=== PATIENT | female | born 1985 | race Asian ===

== ENCOUNTER 2016-10-03 08:00 | Inpatient (IN) ==
[2016-10-04] MEDS ORDERED: Famotidine 20 MG/2 ML VIAL IVP PRN (08:22)
[2016-10-04] MEDS ORDERED: miSOPROStol 25 MCG TABLET PO PRN (08:22)
[2016-10-04] MEDS ORDERED: Metoclopramide 10 MG/2 ML VIAL IVP PRN (08:22)
[2016-10-04] MEDS ORDERED: *HR* Nalbuphine 20 MG/ML AMPUL IVP PRN (08:25)
[2016-10-04] MEDS ORDERED: Ringers Solution, Lactated 1,000 ML IVC SCH (08:30)
[2016-10-04 09:07] LABS: Basophils % 0.1 %; Eosinophils # 0.1 K/mcL (0.0-0.6); Eosinophils % 1.5 %; Hematocrit 33.3 % (35.3-44.9); Hemoglobin 10.8 g/dL (11.5-15.4); Immature Granulocytes % 0.5 % (0-4); Lymphocytes # 1.6 K/mcL (0.6-4.6); Lymphocytes % 19.7 %; Mean Corpuscular HGB Conc 32.4 g/dL (31.6-35.5); Mean Corpuscular Hemoglobin 27.8 pg (28.0-33.3); Mean Corpuscular Volume 85.8 fL (83.0-100.0); Mean Platelet Volume 10.8 fL (9.4-12.4); Monocytes # 0.4 K/mcL (0.0-1.3); Monocytes % 4.9 %; Neutrophils # 5.8 K/mcL (1.6-8.9); Platelet Count 168 K/mcL (140-400); Red Blood Count 3.88 M/mcL (3.82-4.97); Segmented Neutrophils % 73.3 %
--- NOTE | 2016-10-04 10:13 | Anesthesia Evaluation PreOp ---
Date of Encounter: 10/04/16 Time of Encounter: 10:05 - Past History Planned Operation: JOSEFA Cardiac History: Denies any Significant Hx Pulmonary History: Denies Any Significant HX WEB METHODS DEVELOPER History: Denies Any Significant HX Other Medical History: Denies Any Significant HX Anesthesia History: No Prior Anesthetic Complications, Past Anesthesia ( epidural placement last , no family history of anesthesia complications ) : Yes Alcohol Use: none Drug use: none Medications and Allergies Allergies No Known Allergies Allergy (Verified 04/03/15 13:02) - Meds/Allergy Pre-op Review Medications Reviewed: Yes Allergies Reviewed: Yes Beta Blockers on Current Med List: No Anesthesia Results - Labs 10/04/16 08:45 Anesthesia Exam BP 114/67 P 84 R 16 T 98.6 Height: 5'5" Weight: 77.3kg NPO (# of Hours): 4 Pain Scale: 0 Pain Scale Used: Numeric (1 - 10) - HEENT Pupil (Motor): Pupils equal Mallampati: II Teeth: Normal Oral Opening: Greater than 3 - WEB METHODS DEVELOPER LOC: Oriented WEB METHODS DEVELOPER Motor: Normal RUE, Normal LUE, Normal RLE, Normal LLE, Normal Face WEB METHODS DEVELOPER Sensory: Normal: RUE, LUE, RLE, LLE, Face - Cardiac Rhythm: Regular Murmur: None JVD: No Carotid Bruit: No - Pulmonary Breath Sounds: bilateral Clear Respiratory Effort: Symmetrical Anesthesia Assess/Plan ASA Score: 2 Modified Benham Scale for Level of Consciousness: Cooperative, oriented, and tranquil Anesthetic Plan: Regional Autologous Blood: Yes Monitoring Plan: Standard Monitors Recovery Plan: Other
--- NOTE | 2016-10-04 12:00 | OB Labor Progress Note ---
Date of Encounter: 10/04/16 Time of Encounter: 11:58 Labor Progress Note - Subjective Subjective: Patient resting in bed. Denies any pain at this time. Discussed POC with patient. Patient denies any questions or concerns. - Cervix Cervix: 5/80/-1 - Heart Tones Heart Tones: 135 bpm moderate variability +15x15 accels no decels noted. Cat. 1 tracing. - [place]: irregular - Interventions Interventions: SVE, AROM moderate amount of clear fluid. IUPC placed without difficulty. Patient tolerated well. - Plan Plan: Continue labor management. Patient may have Nubain or epidural when desires.
--- NOTE | 2016-10-04 12:06 | OB/GYN History & Physical ---
Date of Encounter: 10/04/16 Time of Encounter: 11:44 Assessment and Plan (1) 40 weeks gestation of Current visit: No Status: Acute Admit for induction of labor. Epidural if desired. Cytotec planned. Consider AROM GBS negative. Anticipate vaginal delivery via induction. History of Present Illness Chief complaint: Elective Induction of Labor - Term HPI: Ms. Reyna is a 31 year old female, , 40.1 GA, presenting for elective induction of labor. Patient reports good movement, occasional contractions , no bloody discharge. Pt negative for quad screen and genetic screening. Denies headache, fever, dyspnea, or edema. Labs: negative for syphilis, HepB, HIV, CT, NG Immune: VZV, Rubella Bld type: B+ Past Med Surg Social Fam HX - Past Medical History Medical history: other Psychiatric history: no psych history - Past Surgical History Surgical History: no surgical history - Social History Smoking Status: Never smoker Smokeless Tobacco Status: No Alcohol use: none Drug use: none - Family History Mother Name: reports no medical history Living Status: Still Living Hx Family Cardiac Disorders: No Hx Family Respiratory Disorders: No Hx Family Cancer: No Hx Family GI Disorders: No Hx Family Endocrine Disorder: No Hx Family Neuromuscular Disorders: No Hx Family Neurologic Disorders: No Hx Family HEENT Disorders: No Hx Family Autoimmune Disorders: No Obstetrical History - Pregnancies : 2 Medications and Allergies Allergies No Known Allergies Allergy (Verified 04/03/15 13:02) Review of System OB - Cardiovascular Cardiovascular: no chest pain, no rapid heart rate - Respiratory Respiratory: no dyspnea - Gastrointestinal Gastrointestinal: no abdominal pain - Menstruation Menstruation: other (40.1 GA) Exam - Constitutional Constitutional: well developed, well nourished - HEENT HEENT: Normocephaly - Lungs Respiratory exam: CTAB - Cardiovascular Cardiovascular exam: +S1, +S2 - Abdomen Abdomen: Present: bowel sounds normal - Cervix Dilation: 4 Effacement: 80 Results Result Diagrams: 10/04/16 08:45 Abnormal lab results Hgb 10.8 g/dL (11.5-15.4) L 10/04/16 08:45 Hct 33.3 % (35.3-44.9) L 10/04/16 08:45 MCH 27.8 pg (28.0-33.3) L 10/04/16 08:45 All other labs normal. - VTE Reasons for not Prescribing Prophylaxis: Treatment not Indicated - Low risk for VTE - Attending Attestation I examined this patient and my medical decision-making was reviewed with the Resident Physician. I agree with the documented findings, disposition and treatment plan as described. Cali Melo CNM
[2016-10-04] MEDS ORDERED: Naloxone 0.4 MG/ML INJ IVP PRN (12:18)
[2016-10-04] MEDS ORDERED: *HR* FentaNYL (PF) 100 MCG/2 ML VIAL EP ONE (12:18)
[2016-10-04] MEDS ORDERED: Ondansetron 4 MG/2 ML VIAL IVP PRN (12:18)
[2016-10-04] MEDS ORDERED: Bupivacaine-MPF 0.25% 10 ML VIAL EP ONE (12:18)
[2016-10-04] MEDS ORDERED: EPHEDrine 50 MG/ML VIAL IVP PRN (12:18)
[2016-10-04] MEDS ORDERED: Epidural Premix (fent/bupiv) 110 ML EP SCH (12:30)
[2016-10-04] MEDS ORDERED: Oxytocin 20 units/ LR 1000 mL 20 UNIT/1,000 ML BAG IVC SCH ×2 (13:15→22:29)
[2016-10-04] MEDS ORDERED: *HR* FentaNYL (PF) 100 MCG/2 ML VIAL ONE (13:25)
[2016-10-04] MEDS ORDERED: Bupivacaine-MPF 0.25% 10 ML VIAL ONE (13:28)
[2016-10-04] MEDS ORDERED: Epidural Premix (fent/bupiv) 110 ML EP ONE (13:28)
--- NOTE | 2016-10-04 14:21 | Anesthesia Procedures ---
Date of Encounter: 10/04/16 Time of Encounter: 13:30 Procedures: Anesthesia - Epidural/Spinal Patient ID/Chart reviewed: Yes Patient examined: Yes OB Eval: Gestational age: 40.1 OB Eval: : 2 OB Eval: Hx Para: 1 OB Eval: Dilated at (cm): 5 OB Eval: Contractions: Non-stressed pattern Consent Obtained: Yes Supplemental Oxygen: None/Room Air Site Prep: Aseptic Technique, Sterile prep and drape, Povidone-Iodine 1% Patient position: upright Local Anesthetic: Lidocaine 1% Amount of Local Anesthetic used: 3 Touhy Needle Gauge: 18 Touhy Needle Depth (cm): 5 Catheter Depth at Skin (cm): 12 Test Dose (1.5% Lido + Epi): Volume given (mls): 3 Test Dose Result: Negative Loading Dose Administered: Thru Catheter Infusion Med: 0.125% Bupivacaine w/ 2 mcg/ml Fentanyl Catheter Secured in Place: Tegaderm, Tape Interspace Used: L4-L5 Loss of Resistance (GEORGE): Yes Blood: No CSF: No Paresthesia: No Procedure: JOSEFA placed in upright position 1st pass without any immediate noted complications. Translater stayed in procedure for purposes of communication. VSS throughout. FHT 130s Vitals + FHT's: 1330 BP 109/62 P77 R 18 1403 BP 106/57 P 80 R 16
--- NOTE | 2016-10-04 19:38 | OB/GYN Procedure Note ---
Delivery - Delivery Date: 10/04/16 Provider: Huang Vázquez Intrapartum events: none Delivery induction: AROM, misoprostol Delivery monitor: external FHT, internal uterine Anesthesia: epidural Estimated Blood Loss: 300 - (s) Infant A Infant Delivery Date: 10/04/16 Delivery Time: 19:13 Presentation: vertex Position: SAHRA Route of delivery: Gender: Male Viability: Viable Pounds: 7 Ounces: 13 at 1 minute: 8 at 5 mins: 9 Shoulder Dystocia: not encountered Specimens collected: cord blood Placenta: spontaneous Cord: nuchal cord, 3 umbilical vessels - Repair Episiotomy: none Laceration Description: Perineal - 2nd Degree - Complications Delivery complications: none - Disposition Mom disposition: stable in LDR disposition: stable in LDR (Pt s/p of liveborn male infant without difficulty. Nuchal cord reduced prior to delivery of shoulders. Spontaneous delivery of normal placenta. 2nd degree laceration repaired with 3-0 Vicryl under epidural.)
[2016-10-04] MEDS ORDERED: Rho Immune Globulin 1,500 UNIT SYRINGE IM PRN (22:29)
[2016-10-04] MEDS ORDERED: Acetaminophen 325 MG TABLET PO PRN (22:29)
[2016-10-04] MEDS ORDERED: Measles/Mumps/Rubella Vacc 0.5 ML VIAL SQ PRN (22:29)
[2016-10-05 06:30] LABS: Basophils % 0.3 %; Eosinophils # 0.1 K/mcL (0.0-0.6); Eosinophils % 0.6 %; Hematocrit 28.2 % (35.3-44.9); Immature Granulocytes % 0.6 % (0-4); Lymphocytes # 1.7 K/mcL (0.6-4.6); Lymphocytes % 17.1 %; Mean Corpuscular HGB Conc 32.6 g/dL (31.6-35.5); Mean Corpuscular Hemoglobin 28.1 pg (28.0-33.3); Mean Corpuscular Volume 86.2 fL (83.0-100.0); Monocytes # 0.6 K/mcL (0.0-1.3); Monocytes % 5.9 %; Neutrophils # 7.4 K/mcL (1.6-8.9); Platelet Count 150 K/mcL (140-400); Red Blood Count 3.27 M/mcL (3.82-4.97); Red Cell Distribution Width 13.9 % (11.5-14.5); Segmented Neutrophils % 75.5 %
[2016-10-05 06:34] LABS: Hemoglobin 9.2 g/dL (11.5-15.4)
[2016-10-05] MEDS: Prenatal Vit/FA 1 EACH TABLET PO SCH (09:09)
--- NOTE | 2016-10-05 12:22 | OB/GYN Progress Note ---
Date of Encounter: 10/05/16 Time of Encounter: 12:21 - Assessment and Plan (1) Vaginal delivery Current Visit: Yes Status: Acute Routine PP care (2) 40 weeks gestation of Current Visit: Yes Status: Resolved Subjective - Subjective Principal diagnosis: s/p vaginal delivery Interval history: Patient is without complaints Patient reports: appetite normal, voiding normally, pain well controlled, ambulating normally : doing well Objective - Latest Vital Signs Latest vital signs: Vital Signs Temp Pulse Pulse Resp BP Pulse Ox 10/05/16 09:15 97.8 F 67 16 85/49 97 10/05/16 00:23 98.3 F 76 16 103/66 97 10/05/16 00:00 98.0 F 80 80 16 101/61 10/04/16 23:00 98.0 F 80 80 16 101/61 10/04/16 22:00 98.3 F 76 80 16 115/67 97 Intake and Output 10/04/16 10/05/16 10/05/16 23:59 07:59 15:59 Output Total 200 / 200 Balance -200 / -200 Output: Urine 200 / 200 Other: # Voids 1 Weight 73.6 kg 73.8 kg Patient Weight 10/05/16 23:59 Weight 73.8 kg - Exam Lungs: bilateral: normal Chest: Normal S1, Normal S2 Extremities: Present: normal Abdomen: Present: normal appearance, soft Uterus: Present: normal, firm. Absent: bogginess, tenderness Uterus Position: At Umbilicus - Labs Labs: Laboratory Results - last 24 hr 10/05/16 06:02 WBC 9.8 RBC 3.27 L Hgb 9.2 L D Hct 28.2 L MCV 86.2 MCH 28.1 MCHC 32.6 RDW 13.9 Plt Count 150 MPV 11.0 Immature Gran % 0.6 Seg Neutrophils % 75.5 Lymphocytes % 17.1 Monocytes % 5.9 Eosinophils % 0.6 Basophils % 0.3 Neutrophils # 7.4 Lymphocytes # 1.7 Monocytes # 0.6 Eosinophils # 0.1 Basophils # 0.0
[2016-10-05] MEDS: Ibuprofen 600 MG TABLET PO PRN ×2 (13:28→22:48)
[2016-10-06] MEDS: Prenatal Vit/FA 1 EACH TABLET PO SCH (08:04)
[2016-10-06 08:49] VITALS: BP 95/61
[2016-10-06] MEDS: Ibuprofen 600 MG TABLET PO PRN (11:19)
--- NOTE | 2016-10-06 11:58 | Discharge Summary ---
Date of Encounter: 10/06/16 Time of Encounter: 11:59 - Discharge Diagnosis (1) Vaginal delivery Priority: Primary Status: Acute Comments: Doing well with appropriate bleeding and expected discomfort. No other c/o. Will D/c home. - Discharge Medications Prescriptions: Ibuprofen [Motrin] 600 mg PO Q6HR PRN #40 tab PRN Reason: Cramping Home Medications: Ibuprofen [Motrin] 600 mg PO Q6HR PRN #40 tab 10/06/16 [Rx] Allergies/Adverse Reactions: Allergies No Known Allergies Allergy (Verified 04/03/15 13:02) Data Procedures and tests throughout hospitalization: Laboratory Tests 10/04/16 10/05/16 08:45 06:02 WBC 8.0 9.8 RBC 3.88 3.27 L Hgb 10.8 L 9.2 L D Hct 33.3 L 28.2 L MCV 85.8 86.2 MCH 27.8 L 28.1 MCHC 32.4 32.6 RDW 14.0 13.9 Plt Count 168 150 MPV 10.8 11.0 Immature Gran % 0.5 0.6 Seg Neutrophils % 73.3 75.5 Lymphocytes % 19.7 17.1 Monocytes % 4.9 5.9 Eosinophils % 1.5 0.6 Basophils % 0.1 0.3 Neutrophils # 5.8 7.4 Lymphocytes # 1.6 1.7 Monocytes # 0.4 0.6 Eosinophils # 0.1 0.1 Basophils # 0.0 0.0 - Impressions (Program Management Analyst contacted via phone) Pt doing well without c/o. Appropriate lochia and cramping. Date of admission: 10/04/16 08:15 Primary care physician: PCP NONE Consults: 10/04/16 22:29 Consult to Education Rn [CONS] Routine Comment: Vaginal delivery, consult needed - Patient Status Disposition: Home, Self-Care Condition: Good Functional capacity at discharge: independent ambulation - Discharge Instructions Follow Up With: Huang Vázquez MD [Partnered Physician] - Additional Instructions: Perineal Care: Always wipe front to back Change your pad frequently Use your lisa bottle with warm water and spray front to back Do not douche, use tampons, have sexual intercourse or put anything in your vagina for 4-6 weeks after delivery Bleeding: Vaginal bleeding can last up to 6 weeks Your menstrual period may return as early as 6 weeks after you are discharged from the hospital Nelli/Stitches Care: Vaginal Delivery Vaginal stitches will dissolve within 4-6 weeks Follow perineal care instructions Care Stitches will dissolve on their own If you have nelli, they will need to be removed in the doctors office within 5-7 days. You may shower with stitches or nelli Drip plan or soapy water over the incision to clean. Pat dry gently with a clean towel. Make sure you completely dry under the skin folds DO NOT USE powders, lotions, rubbing alcohol or hydrogen peroxide on or around your incision. This will slow your wound healing It is normal to have soreness, burning, tingling, itchiness and/or numbness as your incision heals Activity: Rest frequently Do not lift anything heavier than a gallon of milk, up to 10-15 pounds No driving for 1-2 weeks for Vaginal delivery No driving for 2-4 weeks for delivery Take stairs slowly, one at a time Gradually increase your daily activity until you are back to your normal routine Do not exercise until you have had your follow-up appointment Bathing: Take a shower daily Do not take a tub bath for the first 4 weeks Diet: Drink plenty of water and fruit juices Eat a well-balanced diet with foods high in fiber such as fruits and vegetables Depression: Your hormones have a major impact on your feelings and emotions. Hormone imbalance may cause changes in your mood, creating unfamiliar thoughts and actions. Support is available to help you understand and cope with these feelings and mood changes. If you answer yes to any of the following questions, please call your health care provider: Are you having trouble sleeping? Are you feeling isolated? Have you lost your appetite? Are you having thoughts of hurting yourself or others? WARNING SIGNS: Heavy bleeding from the vagina (blood is bright red and soaks a sanitary pad in an hour or less.) Passing a blood clot larger than your fist Discharge from the vagina that has a bad odor Temperature over 100.4 F, or if you feel cold and have chills An episiotomy site that is warm, swollen or oozing. Use a mirror if needed Urination (pee) that is painful, very red and swollen or leaking fluid An incision that is painful, very red and swollen and leaking fluid An incision that has come open Breasts that are painful or full with flu like symptoms Redness, warmth or swelling in the calf of your leg Trouble breathing, dizziness, visual disturbance or faintness *Notify your health care provider immediately or go to the nearest Emergency Room if you experience any of the above signs.* To contact the nurses station 24 hours a day, For non-urgent, routine questions, please call the office at - Diet and Activity Activity: increase activity as tolerated Diet: advance to your usual diet Hospital Course GAG WRITER Time Attestation: Total time spent providing and/or coordinating discharge services: Exam - Constitutional Vitals: Temp Pulse Resp BP Pulse Ox 97.8 F 65 14 95/61 100 10/06/16 08:48 10/06/16 08:48 10/06/16 08:48 10/06/16 08:48 10/06/16 08:48 General appearance IM: A&O X 3 - Respiratory Respiratory exam: Present: CTAB - Cardiovascular Cardiovascular exam IM: Present: RRR - GI/Abdominal GI/Abdominal exam IM: normal bowel sounds - Uterus Position: 2 Fingers Below Umbilicus - Extremities Exam Extremities exam IM: Present: full ROM, normal capillary refill, normal inspection - Neurological Exam Neurological exam: oriented X3 - VTE Reasons for not Prescribing Prophylaxis: Treatment not Indicated - Low risk for VTE
--- NOTE | 2016-10-06 13:09 | Discharge Summary ---
Outpatient Proc Discharge Plan - Plan Additional Instructions: Perineal Care: Always wipe front to back Change your pad frequently Use your lisa bottle with warm water and spray front to back Do not douche, use tampons, have sexual intercourse or put anything in your vagina for 4-6 weeks after delivery Bleeding: Vaginal bleeding can last up to 6 weeks Your menstrual period may return as early as 6 weeks after you are discharged from the hospital [place]/Stitches Care: Vaginal Delivery Vaginal stitches will dissolve within 4-6 weeks Follow perineal care instructions Care Stitches will dissolve on their own If you have nelli, they will need to be removed in the doctors office within 5-7 days. You may shower with stitches or nelli Drip plan or soapy water over the incision to clean. Pat dry gently with a clean towel. Make sure you completely dry under the skin folds DO NOT USE powders, lotions, rubbing alcohol or hydrogen peroxide on or around your incision. This will slow your wound healing It is normal to have soreness, burning, tingling, itchiness and/or numbness as your incision heals Activity: Rest frequently Do not lift anything heavier than a gallon of milk, up to 10-15 pounds No driving for 1-2 weeks for Vaginal delivery No driving for 2-4 weeks for delivery Take stairs slowly, one at a time Gradually increase your daily activity until you are back to your normal routine Do not exercise until you have had your follow-up appointment Bathing: Take a shower daily Do not take a tub bath for the first 4 weeks Diet: Drink plenty of water and fruit juices Eat a well-balanced diet with foods high in fiber such as fruits and vegetables Depression: Your hormones have a major impact on your feelings and emotions. Hormone imbalance may cause changes in your mood, creating unfamiliar thoughts and actions. Support is available to help you understand and cope with these feelings and mood changes. If you answer yes to any of the following questions, please call your health care provider: Are you having trouble sleeping? Are you feeling isolated? Have you lost your appetite? Are you having thoughts of hurting yourself or others? WARNING SIGNS: Heavy bleeding from the vagina (blood is bright red and soaks a sanitary pad in an hour or less.) Passing a blood clot larger than your fist Discharge from the vagina that has a bad odor Temperature over 100.4 F, or if you feel cold and have chills An episiotomy site that is warm, swollen or oozing. Use a mirror if needed Urination (pee) that is painful, very red and swollen or leaking fluid An incision that is painful, very red and swollen and leaking fluid An incision that has come open Breasts that are painful or full with flu like symptoms Redness, warmth or swelling in the calf of your leg Trouble breathing, dizziness, visual disturbance or faintness *Notify your health care provider immediately or go to the nearest Emergency Room if you experience any of the above signs.* To contact the nurses station 24 hours a day, For non-urgent, routine questions, please call the office at Prescriptions: Ibuprofen [Motrin] 600 mg PO Q6HR PRN #40 tab PRN Reason: Cramping Docusate [Colace] 100 mg PO BID PRN #60 PRN Reason: Constipation Nystatin/Triamcinolone CRM [Mycolog] 1 appl TP BID #1 tube Home Medications: Docusate [Colace] 100 mg PO BID PRN #60 10/06/16 [Rx] Ibuprofen [Motrin] 600 mg PO Q6HR PRN #40 tab 10/06/16 [Rx] Nystatin/Triamcinolone CRM [Mycolog] 1 appl TP BID #1 tube 10/06/16 [Rx]
== END 2016-10-06 14:00 | disposition home or self-care (01) | DRG 775 ==
LOC: 1NENULAB 10-04 08:15 → 1NENUOBS 10-04 22:27
PROVIDERS: ADMIT Obstetrics & Gynecology; ATTEND Obstetrics & Gynecology